=== PATIENT | male | born 1990 | race Caucasian/White ===

== ENCOUNTER 2020-07-16 10:02 | Inpatient (IN) | payer OTHER ==
[~2020-07-16] VITALS: Ht 182.9 cm; Wt 72.7 kg
[2020-07-16] MEDS ORDERED: 0.9% SODIUM CHLORIDE 10 ML SYRINGE IVP PRN (10:45)
[2020-07-16] MEDS ORDERED: ONDANSETRON HCL 4 MG/2 ML VIAL IVP PRN (10:45)
[2020-07-16] MEDS ORDERED: ACETAMINOPHEN 325 MG TABLET PO PRN (10:45)
[2020-07-16 12:18] VITALS: BP 111/60
[2020-07-16 12:26] LABS: COVID AG,FIA SOURCE NASOPHARYNGEAL
[2020-07-16] MEDS ORDERED: DICYCLOMINE HCL 10 MG CAPSULE PO PRN (13:30)
[2020-07-16] MEDS ORDERED: METOCLOPRAMIDE HCL 5 MG/ML 2 ML VIAL IVP PRN (13:30)
[2020-07-16] MEDS ORDERED: LOPERAMIDE HCL 2 MG CAPSULE PO PRN (13:30)
[2020-07-16] MEDS: ACETAMINOPHEN/CODEINE 300-15 MG TABLET PO PRN ×2 (13:58→20:21)
[2020-07-16 19:53] VITALS: BP 114/57
[2020-07-16] MEDS: TEMAZEPAM 15 MG CAPSULE PO SCH (20:21)
[2020-07-16 23:15] VITALS: BP 102/63
[2020-07-16] MEDS ORDERED: LORazepam 2 MG/ML VIAL IM ONE (23:45)
[2020-07-17 05:00] VITALS: BP 96/62
[2020-07-17 05:40] LABS: BASOPHILS % (AUTO) 0.7 % (0.0-2.0); HEMATOCRIT 37.4 % (41-53); HEMOGLOBIN 12.8 g/dL (13.5-17.5); LYMPHOCYTES # (AUTO) 2.2 K/uL (1.0-4.8); LYMPHOCYTES % (AUTO) 37.4 % (22.0-44.0); MEAN CORPUSCULAR HEMOGLOBIN 31.9 pg (26.0-34.0); MEAN CORPUSCULAR HGB CONC 34.1 G/dL (31.0-37.0); MEAN CORPUSCULAR VOLUME 93 fL (80-100); MONOCYTES # (AUTO) 0.6 K/uL (0.1-1.0); MONOCYTES % (AUTO) 10.1 % (2.0-9.0); NEUTROPHILS # (AUTO) 2.9 K/uL (1.8-7.7); NEUTROPHILS % (AUTO) 48.8 % (40.0-70.0); PLATELET COUNT (AUTO) 186 K/uL (150-450); RED BLOOD CELL COUNT(AUTO) 4.01 MIL/uL (4.50-5.90); RED CELL DISTRIBUTION WIDTH 13.3 % (11.5-14.5)
[2020-07-17 06:05] LABS: ALANINE AMINOTRANSFERASE 24 U/L (12-78); ALBUMIN 3.4 g/dL (3.4-5.0); ALKALINE PHOSPHATASE 25 U/L (46-116); ANION GAP 5 mmol/L (8-16); ASPARTATE AMINOTRANSFERASE 41 U/L (15-37); BILIRUBIN,TOTAL 0.6 mg/dL (0.1-1.0); CALCIUM, TOTAL 8.9 mg/dL (8.8-10.5); CARBON DIOXIDE 29 mmol/L (22-29); CHLORIDE 108 mmol/L (98-107); CREATININE 0.98 mg/dL (0.60-1.30); GLOMERULAR FILTR. RATE CALC > 60 mL/min (>60); GLUCOSE,RANDOM 107 mg/dL (70-110); POTASSIUM 4.5 mmol/L (3.5-5.1); SODIUM SERUM 142 mmol/L (136-145); TOTAL PROTEIN, SERUM 6.4 g/dL (6.4-8.2); UREA NITROGEN, BLOOD 15 mg/dL (7-18)
[2020-07-17 06:31] LABS: AMPHET/METH SCREEN,URINE NEGATIVE (NEGATIVE); BARBITURATE SCREEN, URINE NEGATIVE (NEGATIVE); BENZODIAZEPINES SCREEN,URINE POSITIVE (NEGATIVE); CANNABINOID SCREEN,URINE POSITIVE (NEGATIVE); COCAINE SCREEN,URINE NEGATIVE (NEGATIVE); METHADONE SCREEN, URINE NEGATIVE (NEGATIVE); OPIATE SCREEN,URINE POSITIVE (NEGATIVE)
[2020-07-17 06:33] LABS: PHENCYCLIDINE SCREEN,URINE NEGATIVE (NEGATIVE)
[2020-07-17 07:36] VITALS: BP 100/67
[2020-07-17] MEDS: ACETAMINOPHEN/CODEINE 300-15 MG TABLET PO PRN ×3 (08:20→21:08)
[2020-07-17 18:55] VITALS: BP 98/51
[2020-07-17] MEDS ORDERED: KETOROLAC TROMETHAMINE 30 MG/ML VIAL IM ONE (19:15)
[2020-07-17 19:48] VITALS: BP 114/62
[2020-07-17] MEDS: TEMAZEPAM 15 MG CAPSULE PO SCH (20:25)
[2020-07-17] MEDS ORDERED: MELATONIN 5 MG TABLET PO SCH ×2 (21:00)
[2020-07-18 04:12] VITALS: BP 108/63
[2020-07-18] MEDS: ACETAMINOPHEN/CODEINE 300-15 MG TABLET PO PRN (05:49)
[2020-07-18 08:04] VITALS: BP 93/63
== END 2020-07-18 08:55 | DRG 206 ==
LOC: EMS 10:09 → 6S 11:12
PROVIDERS: ADMIT Internal Medicine; ATTEND Internal Medicine
DX: S22.31XA Fracture of one rib, right side, initial encounter for closed fracture (principal); F13.939 Sedative, hypnotic or anxiolytic use, unspecified with withdrawal, unspecified; F41.9 Anxiety disorder, unspecified; X58.XXXA Exposure to other specified factors, initial encounter; Y93.89 Activity, other specified; Y92.89 Other specified places as the place of occurrence of the external cause; Y99.8 Other external cause status; F17.200 Nicotine dependence, unspecified, uncomplicated; Z20.822 Contact with and (suspected) exposure to COVID-19
CPT/HCPCS: 87426; 99285; A9575; J1885; J2060